=== PATIENT | female | born 1950 | race Caucasian/White ===

== ENCOUNTER 2023-07-31 05:02 | Observation (INO) ==
--- NOTE | 2023-06-26 09:17 | PAT Medication Instructions ---
Medication Instructions Date of Service June 26, 2023 Home Medications apixaban 5 mg tablet (Eliquis) 5 mg PO BID calcium 500 mg tablet 500 mg PO QDL cholecalciferol (vitamin D3) 50 mcg (2,000 unit) tablet (Vitamin D3) 50 mcg PO QAM d-mannose 500 mg capsule (AZO D-Mannose) 500 mg PO QDL estradiol 0.01% (0.1 mg/gram) vaginal cream 1 g vaginal 3XWK ferrous sulfate 325 mg (65 mg iron) tablet 325 mg PO QAM lisinopril 10 mg-hydrochlorothiazide 12.5 mg tablet 1 tab PO QAM metoprolol tartrate 50 mg tablet 50 mg PO BID multivitamin 1 tab PO QDL ASK your prescriber and surgeon apixaban 5 mg tablet (Eliquis) 5 mg PO BID(in order for spinal or epidural anesthesia, Eliquis needs to be stopped 72 hours/3 days before surgery. Please check if okay with doctor that prescribes this to you) STOP taking 24 hours before surgery estradiol 0.01% (0.1 mg/gram) vaginal cream 1 g vaginal 3XWK DO NOT take the morning of surgery calcium 500 mg tablet 500 mg PO QDL cholecalciferol (vitamin D3) 50 mcg (2,000 unit) tablet (Vitamin D3) 50 mcg PO QAM d-mannose 500 mg capsule (AZO D-Mannose) 500 mg PO QDL ferrous sulfate 325 mg (65 mg iron) tablet 325 mg PO QAM lisinopril 10 mg-hydrochlorothiazide 12.5 mg tablet 1 tab PO QAM multivitamin 1 tab PO QDL Take morning of surgery With a small sip of water, OTHERWISE NOTHING TO EAT OR DRINK AFTER MIDNIGHT: metoprolol tartrate 50 mg tablet 50 mg PO BID Take evening before surgery metoprolol tartrate 50 mg tablet 50 mg PO BID Other Notes If you have any questions please call us at [phone] or [phone] or [phone] or [phone]
--- NOTE | 2023-07-02 11:12 | Anesthesiology Consultation ---
Date of Service July 02, 2023 Assessment & Plan (1) Encounter for pre-operative examination: Chart Review Chart Review: Acceptable Risk for Surgery (pending 06/2022 stress test if available, PCP clearance scheduled 07/08/23, and response from patient regarding Eliquis ) and Patient seen in Pre Admission Testing - Awaiting stress test (07/05/22 per cardio records- [facility]) - Awaiting PCP clearance 07/08/23 (Dr. Landry Miner) - Awaiting response from patient regarding Eliquis - Patient is NOT an OPJ candidate- had hypotension post op with previous surgery and patient feels she needs to stay overnight for monitoring Per PAT appt on 07/02/23, no recent illness/disease exposures, illness related symptoms, or recent illness/disease positive tests. Will leave to surgeon's discretion if preop Covid testing needed Patient seen by cardio 06/06/23= seen for follow up on atrial fibrillation. Atrial fibrillation with controlled ventricular response by EKG in office today. Remains asymptomatic. Hospitalized in December 2022 for fallhad syncopal episode. EKG on presentation showed normal sinus rhythm and then patient was back in A-fib by the next day. Wondering if syncope was conversion pause (A-fib to SR). Has not had any recurrent episodes since then. Because she is asymptomaticreasonable to continue with rate control and anticoagulation strategy for now. If patient becomes more symptomatic or rates are difficult to controlcould consider starting antiarrhythmic followed by cardioversion. If she has recurrent syncopal episodes may need to perform jail monitoring to determine if pacemaker is indicated. She is planning for knee replacement in July. Eliquis can be held for 48 hours prior to operation and resume RAJWINDER once adequate hemostasis is achieved. Follow-up in 6 months. (Patient will check with sap abap developer if she can hold Eliquis x 72 hours in order to get SAB) Teaching & Discussion Pre-Anesthesia Teaching/Discussion Notes: Instructed NPO after midnight before surgery,except medications with 15 cc of water. Medication instructions provided according to the PAT guidelines. History Surgery Operation Date: 07/31/23 07:00 Proposed Procedures p Right Total Knee Arthroplasty - Db Odonnell DO Height/Weight Height: 5 ft 6 in Weight: 80.8 kg Allergies Allergy/AdvReac Type Severity Reaction Status Date / Time No Known Allergies Allergy Verified 06/25/23 12:15 Medications Home Medications Medication Instructions Recorded Confirmed Last Taken apixaban 5 mg tablet (Eliquis) 5 mg PO BID 06/25/23 06/25/23 Unknown calcium 500 mg tablet 500 mg PO QDL 06/25/23 06/25/23 Unknown cholecalciferol (vitamin D3) 50 50 mcg PO QAM 06/25/23 06/25/23 Unknown mcg (2,000 unit) tablet (Vitamin D3) d-mannose 500 mg capsule (AZO 500 mg PO QDL 06/25/23 06/25/23 Unknown D-Mannose) estradiol 0.01% (0.1 mg/gram) 1 g vaginal 3XWK 06/25/23 06/25/23 Unknown vaginal cream ferrous sulfate 325 mg (65 mg 325 mg PO QAM 06/25/23 06/25/23 Unknown iron) tablet lisinopril 10 1 tab PO QAM 06/25/23 06/25/23 Unknown mg-hydrochlorothiazide 12.5 mg tablet metoprolol tartrate 50 mg tablet 50 mg PO BID 06/25/23 06/25/23 Unknown multivitamin 1 tab PO QDL 06/25/23 06/25/23 Unknown Past Medical History Medical History (Updated 07/02/23 @ 14:47 by Symone Dumont PA-C) Atrial fibrillation Follows with Dr. Patel. On Eliquis. Frequent UTI No current symptoms History of COVID-19 End of Apr 2023. Sneezing and runny nose. Mild cough- symptoms resolved History of syncope - 12/2022 - hospitalized [facility]. "possibly related to A.fib." - per cardio records- possible conversion pause (a fib to SR)- no recurrence since that time HTN (hypertension) Hyperglycemia Hgb A1C 6.0 on 07/02/23 Hyperlipemia Iron deficiency anemia Osteoarthritis PONV (postoperative nausea and vomiting) Spinal stenosis Thyroid nodule PCP monitors. Urinary retention with incomplete bladder emptying straight caths at home BID. Exercise / Class Metabolic Activity III < 4 Walking/Shop/Light housework (no chest pain or SOB with flat surface ambulation ) Past Surgical History Surgical History History of appendectomy History of cholecystectomy History of colonoscopy History of corneal transplant x2 History of cystoscopy History of left knee replacement History of tubal ligation Past Anesthesia History No Hx of Anesthesia Complications (with exception to PONV ) and No Family Hx of Anesthesia Complications History of PONV No Hx of Motion Sickness and History of PONV Social History Smoking Status: Never smoker Do You Dip or Chew Tobacco: No Hx Alcohol Use: Yes alcohol intake frequency: holidays/special occasions only Hx Substance Use: No substance use type: does not use Review of Systems - Occ reflux - relieved with Tums PRN Patient denies chest pain, shortness of breath, dyspnea on exertion, cough, wheezing, palpitations. No hx of seizures, stroke, NC, apnea/snoring. No hx of blood clots or blood transfusions Physical Exam Vital Signs VITALS BP 117/60 P 98 TEMP 98.2 SP02 96% RESP 16 Constitutional no acute distress ENMT Mouth: no TMJ clicking Thyromental Distance: > or= 3.5 Finger Breadths (3.5) Mallampati Class: II Full dentures on top and bottom Neck neck extension not limited Respiratory normal respiratory effort; no respiratory distress Auscultation: lungs clear to auscultation bilaterally; no wheezes Cardiovascular Heart Sounds: no murmur Vessels: no carotid bruit Irregularly irregular rhythm - rate controlled Musculoskeletal Spine: no pain with cervical ROM Extremities: extremities normal to inspection Psychiatric Orientation: alert Lab Results Anesthesia Preop Results Results Anesthesia Widget: WBC 5.92 K/ul (4.8-10.8) 07/02/23 Hgb 12.6 g/dl (12.0-16.0) 07/02/23 Hct 39.3 % (37.0-47.0) 07/02/23 Plt 218 K/uL (130-400) 07/02/23 Na 141 mmol/L (136-145) 07/02/23 K 3.8 mmol/L (3.5-5.1) 07/02/23 Cl 107 mmol/L (98-107) 07/02/23 CO2 28 mmol/L (21-32) 07/02/23 BUN 23 mg/dl (6-23) 07/02/23 Creat 0.94 mg/dl (0.6-1.2) 07/02/23 Glucose Level 135 mg/dl (70-99(Fasting)) H 07/02/23 PT 11.0 Seconds (9.0-12.0) 07/02/23 PTT 28 Seconds (21-31) 07/02/23 INR 1.0 (0.9-1.1) 07/02/23 HA1c 6.0 % (4.5-5.6) H 07/02/23 Blood Type A Positive 07/02/23 Antibody Screen NEGATIVE 07/02/23 Testing Electrocardiogram Date: 06/06/23 Findings: + AFIB @ (88bpm) Chest X-Ray Date: 01/13/23 Findings: + NAD and + cardiomegaly (mild) Echocardiogram Date: 01/14/23 EF: 50-55% RWMA: + none Other Findings: no LVH LV systolic function lower limits of normal. RV cavity is severely dilated. RVSP 37mmHg. Mild TR Inferior vena cava- dilated.
--- NOTE | 2023-07-05 12:47 | History & Physical Report ---
Date of Service July 05, 2023 date of surgery: 07/31/23 Procedure: Right Total Knee Arthroplasty Surgeon: Db Odonnell, Assessment & Plan (1) Arthritis of right knee: Plan: Further care discussed with patient and at this point in time has failed conse rvative measures and would like to proceed with a right total knee replacement. Plan on discharge will be home with home health physical therapy. DVT prophylaxiswith TEDs, SCDs and will resume her Eliquis postop. Patient will have follow up appointment in our office two weeks post op for staple/suture removal and re-evaluation. Patient otherwise has no other questions or concerns. The risks and benefits have been discussed including, but not limited to, risk of infection, nerve injury, stiffness, loss of motion, failure to improve, etc. Reasonable outcomes and options of treatment were discussed. An explanation of appropriate alternatives to the procedure that may be advantageous were discussed and their risks and benefits, as well as the risks and benefits of not proceeding with treatment. I offered to answer any additional inquiries concerning the treatment involved. All the patient's questions were answered. The patient is agreeable, understanding of the treatment plan and alternatives, and wishes to proceed with the treatment plan. History of Present Illness Chief Complaint: Right knee pain Primary Care Provider: NO PCP Gloria is a pleasant 72-year-old female who presented for preop evaluation prior to upcoming right total knee arthroplasty. She has a longstanding history of right knee pain which is gradually worsened and is now affecting her daily activities including walking standing using stairs. She has tried physical therapy as well as previous injections with no improvement. She is tried oral anti-inflammatories and Tylenol as well. She has a history of left total knee arthroplasty which is recovered nicely. She at this time would like to proceed with a right total knee replacement. Currently unable to take anti- inflammatories due to Eliquis use Allergies Allergy/AdvReac Type Severity Reaction Status Date / Time No Known Allergies Allergy Verified 06/25/23 12:15 Home Medications Medication Instructions Recorded Confirmed Type apixaban 5 mg tablet (Eliquis) 5 mg PO BID 06/25/23 06/25/23 History calcium 500 mg tablet 500 mg PO QDL 06/25/23 06/25/23 History cholecalciferol (vitamin D3) 50 50 mcg PO QAM 06/25/23 06/25/23 History mcg (2,000 unit) tablet (Vitamin D3) d-mannose 500 mg capsule (AZO 500 mg PO QDL 06/25/23 06/25/23 History D-Mannose) estradiol 0.01% (0.1 mg/gram) 1 g vaginal 3XWK 06/25/23 06/25/23 History vaginal cream ferrous sulfate 325 mg (65 mg 325 mg PO QAM 06/25/23 06/25/23 History iron) tablet lisinopril 10 1 tab PO QAM 06/25/23 06/25/23 History mg-hydrochlorothiazide 12.5 mg tablet metoprolol tartrate 50 mg tablet 50 mg PO BID 06/25/23 06/25/23 History multivitamin 1 tab PO QDL 06/25/23 06/25/23 History Past Med/Surg History Medical History Hyperglycemia Hgb A1C 6.0 on 07/02/23 History of COVID-19 of Apr 2023. Sneezing and runny nose. Mild cough- symptoms resolved Hyperlipemia History of syncope - 12/2022 - hospitalized [facility]. "possibly related to A.fib." - per cardio records- possible conversion pause (a fib to SR)- no recurrence since that time PONV (postoperative nausea and vomiting) Spinal stenosis Urinary retention with incomplete bladder emptying straight caths at home BID. Frequent UTI No current symptoms Osteoarthritis Thyroid nodule PCP monitors. Iron deficiency anemia HTN (hypertension) Atrial fibrillation Follows with Dr. Patel. On [facility]. Surgical History History of left knee replacement History of corneal transplant x2 History of tubal ligation History of cholecystectomy History of appendectomy History of cystoscopy History of colonoscopy Social History Smoking Status: Never smoker Second Hand Exposure: No; Do You Dip or Chew Tobacco: No; Hx Alcohol Use: Yes Hx Substance Use: No Preferred Language: Setswana Communication Ability: Effective Paper Cone Grader Required: No Beliefs That Will Affect Care: None Current Living Situation: Spouse Feels Safe at Home: Yes Safety Concerns: Feels Safe At This Time Assistive Devices: Denture - Upper and Denture - Lower Review of Systems Review of Systems: All systems reviewed & are unremarkable except as noted in HPI & below Constitutional: no fever, no chills and no sweats Respiratory: no cough and no dyspnea Cardiovascular: no chest pain, no dyspnea and no orthopnea Gastrointestinal: no abdominal pain, no nausea and no vomiting Musculoskeletal: as per Subjective / HPI Physical Exam Physical Exam: HT: 5ft 6in WT: 80.8kg Constitutional: WD/WN, vitals as above no acute distress Respiratory: normal respiratory effort, lungs clear to auscultation no respiratory distress, no labored breathing and does not use accessory muscles Cardiovascular: RRR, no murmur, no edema Gastrointestinal (Abdomen): normal bowel sounds, soft, nontender, no hepatosplenomegaly Musculoskeletal: Knee: + knee abnormal to inspection (RIGHT KNEE), + effusion (+1 effusion), + limited ROM of knee (ROM 0/3/110), + knee ROM with crepitation, + joint line tenderness (medial joint line) and + Krish's sign positive; no deformity, no skin erythema, no ecchymosis, no valgus laxity, no varus laxity, anterior drawer test negative, Cy's sign negative and pivot shift test negative Results & Data Results & Data Diagnostic Findings Right Knee X-ray: Right knee series showing advanced degenerative changes to the right knee, narrowing of the medial compartment and patello-femoral joint with patellar spurring noted, findings showing joint space narrowing of the medial compartment and patello-femoral joint, osteophyte formation and subchondral sclerosis noted. overall varus alignment. no acute bony pathology noted.
[2023-07-31] MEDS: LR 60ML/HR IV SCH (06:00)
[2023-07-31] MEDS: ACETAMINOPHEN 500 MG TAB PO SCH ×2 (06:04→14:35)
[2023-07-31] MEDS: dexAMETHasone**PF** 10 MG/ML VIAL IV SCH (06:04)
[2023-07-31] MEDS: FAMOTIDINE 20 MG TAB PO SCH (06:05)
[2023-07-31] MEDS: GABAPENTIN 300 MG CAP PO SCH (06:05)
[2023-07-31] MEDS: CeleBREX 200 MG CAP PO SCH (06:05)
[2023-07-31] MEDS: LR 500ML BOLUS, THEN 15ML/HR IV SCH (06:05)
[2023-07-31] MEDS ORDERED: BUPIVACAINE 0.5 % 5 MG/1 ML PF 10ML VIAL ONE (06:27)
[2023-07-31] MEDS ORDERED: BUPIVACAINE 0.25% PF 30 ML VIAL ONE (06:27)
[2023-07-31] MEDS ORDERED: PROPOFOL IV EMULSION 10 MG/ML 20 ML VIAL IV ONE (06:40)
[2023-07-31] MEDS ORDERED: MIDAZOLAM HCL 1 MG/ML 2ML VIAL ONE (06:40)
[2023-07-31] MEDS ORDERED: fentaNYL citrate PF 100 MCG/2 ML VIAL ONE (06:40)
[2023-07-31] MEDS ORDERED: ATROPINE SULFATE 0.1 MG/ML 10ML SYR IV PRN (06:52)
[2023-07-31] MEDS ORDERED: PROMETHAZINE HCL 6.25 MG in SODIUM CHLORIDE 0.9% 50 ML IV PRN (06:52)
[2023-07-31] MEDS ORDERED: ONDANSETRON INJ 2 MG/ML 2 ML VIAL IV PRN ×2 (06:52→11:29)
[2023-07-31] MEDS ORDERED: ePHEDrine sulfate 50 MG/ML AMP IV PRN (06:52)
[2023-07-31] MEDS ORDERED: ACETAMINOPHEN 1000 MG/100 ML IV IV ONE (06:59)
--- NOTE | 2023-07-31 07:06 | History & Physical Bridge Note ---
Date of Service July 31, 2023 History & Physical Bridge Note I have examined the patient, reviewed the History & Physical and in the interval since the performance of the History & Physical I have noted the following changes of clinical significance: no changes noted
[2023-07-31] MEDS: ceFAZolin 2000MG 2,000 MG/15 ML SYR IV SCH ×2 (07:18→14:33)
[2023-07-31] MEDS ORDERED: ONDANSETRON INJ 2 MG/ML 2 ML VIAL ONE (07:50)
[2023-07-31] MEDS: ORTHO JOINT ANESTHETIC ONE (08:28)
[2023-07-31] MEDS: ROPIV 0.5% 246mg, Ketorolac 30mg, EPINEPHrine 0.5mg in NSS INFIL SCH (08:28)
--- NOTE | 2023-07-31 08:34 | Operative Report ---
Post Operative Report Pre & Post Diagnosis Operation Date: 07/31/23 07:00 Pre-Op Diagnosis: Right Knee Osteoarthritis Post-Op Diagnosis: Right Knee Osteoarthritis I identified the patient and participated in the time-out.: Yes Procedure Operation Date: 07/31/23 07:00 Actual Procedures p Right Total Knee Arthroplasty(Right) utilizing [employer]ph[employer] journey 2 patient matched total knee arthroplasty size femur 4 tibia 4 poly 13 patella 29 joo- Db Odonnell DO Surgeon Db Odonnell DO Gear Changer SULEMA Orozco Estimated Blood Loss 5 Findings Consistent with Post-Op Diagnosis Patient presents with severe end-stage tricompartmental degenerative joint disease varus alignment subchondral sclerosis marginal osteophytes subchondral cystic changes with eburnated [id number] and moderate to large effusion Specimens Bone and cartilage Drains Medium bore Hemovac Anesthesia Type MAC Spinal Regional Complications none Disposition Accompanied Patient To Recovery: No Disposition: Recovery Room Indications Patient presents with severe end-stage tricompartmental degenerative joint disease of the right knee nonresponse to conservative management for total knee arthroplasty patient is failed attempted conservative management occluding physical therapy anti-inflammatories relative rest activity modification corticosteroid injection viscosupplementation above intraoperative findings were noted Description of Procedure After proper prepping and draping of the Right lower extremity anterior midline incision was made over the region of the extensor extensor mechanism after meticulous hemostasis was obtained and maintained in subcutaneous tissues a medial parapatellar incision was made The patella was subluxed lateralward the medial lateral gutter were cleaned from any hypertrophic synovitis and scar tissue of the distal femoral block was placed and the distal femoral osteotomy cut was made subsequently the chamfers anterior and posterior osteotomy cuts were made utilizing the 4-in-1 block the tibia was subsequently subluxed anteriorward medial and ateral meniscal remnants were excised in their entirety remnants of the anterior and posterior cruciate ligaments were excised in their entirety excellent exposure of the proximal tibia was obtained the tibial osteotomy guide was placed on the proximal tibial osteotomy cut was made once again the knee was irrigated with copious amounts of sterile saline solution the patella was subsequently everted lateralward thickened scar tissue around the patella was removed the patella was subsequently cut utilizing a freehand technique and was drilled prepared for final preparation and placement of patella socially flexion-extension gaps were checked and the equal and symmetric trials were placed to the appropriate femoral and tibial trials with poly-spacer being placed for equal flexion and extension gaps and full range of motion including extension to 0 and flexion to 140 the trial components after having been taken to recovery range of motion was subsequently removed meticulous hemostasis was obtained and maintained subsequently a knee block injection of joint cocktail including ropivacaine 0.5% 150 mg. Bupivacaine 0.5% epinephrine 1-200,030 mL's toradol 30 mg dexamethasone 4 mg ketamine 10 mg clonidine 100 mi crograms normal saline solution 30 mg was infiltrated into the soft tissues of the posterior knee medial lateral gutters and periosteal synovium special attention was paid to protect neurovascular structures at all times subsequently trial components having been removed the knee was irrigated with sterile saline solution. debris was removed the proximal tibia was subsequently prepared and was made ready for the placement of the tibial component tibial component was also cemented and tamped into position the femoral component was subsequently placed and cemented in the position the patellar component was subsequently cemented in position because hemostasis once again obtained and maintained wound having been thoroughly irrigated with debridement and debridement lavage was performed as well as a medial parapatellar incision closed with #1 Vicryl in interrupted fashion subcutaneous was closed with #2 Vicryl skin was closed with skin clips. PA-C was necessary for prepping and drapping as well as wound closure of deep fascia Sub cutaneous tissue and skin and was necessary for the case. A sterile compressive dressing was placed patient was taken to recovery in stable condition of report dictated by Blas I attest to the content of the Intraoperative Record and any orders documented therein. Any exceptions are noted below.Due to the complex nature of the procedure, the entire surgery was performed with the operational assistance of SULEMA Orozco. The bilingual administrative assistant, under direct supervision, was involved in the actual performance of all aspects of the surgical procedure including hemostasis, tissue retraction and incision, instrument management, patient positioning, and wound closure. I attest to the content of the Intraoperative Record and any orders documented therein. Any exceptions are noted below.
[2023-07-31] MEDS: fentaNYL citrate PF 100 MCG/2 ML VIAL IV PRN (09:22)
--- NOTE | 2023-07-31 10:23 | Electrocardiogram Report ---
Test Reason : Blood Pressure : / mmHG Vent. Rate : 100 BPM Atrial Rate : 094 BPM P-R Int : 000 ms QRS Dur : 098 ms QT Int : 384 ms P-R-T Axes : 000 -22 266 degrees QTc Int : 495 ms Atrial fibrillation Diffuse Nonspecific T wave abnormality Prolonged QT Abnormal ECG No previous ECGs available Confirmed by Kendrick Garcia ([id number]) on 07/31/2023 10:22:52 AM Referred By: Db Odonnell Confirmed By:Kendrick Garcia
--- NOTE | 2023-07-31 10:29 | XRay Report ---
XR knee RT 1 or 2V routine CLINICAL HISTORY: Surgical Post Op TECHNIQUE: 2 views of the right knee were obtained. Comparison: None available at the time of this dictation. FINDINGS: Patient is status post total knee arthroplasty with expected postsurgical changes including soft tiss ue swelling and subcutaneous emphysema. No periarticular lucency or hardware fracture is seen. IMPRESSION: Expected postoperative appearance status post placement of total knee arthroplasty. ACT 112: Negative or not required by law. Electronically signed by: Rhett Morales M.D. 07/31/2023 10:28 AM
[2023-07-31 10:44] LABS: BUN Creatinine Ratio 18.9 (10-20); Calcium 8.7 mg/dl (8.6-10.3); Creatinine Clr Calc Pharmacy 62.4 ml/min; Est GFR (African American) 75.1 ml/min; Est GFR (Non-African American) 64.8 ml/min; Magnesium 1.9 mg/dl (1.7-2.4); Potassium 3.4 mmol/L (3.5-5.1)
[2023-07-31 10:51] LABS: Troponin I High Sensitivity 4.5 pg/ml (0-14)
[2023-07-31 11:00] LABS: Thyroid Stimulating Hormone 2.747 uIu/ml (0.300-4.500)
[2023-07-31] MEDS ORDERED: diphenhydrAMINE Capsule 25 MG CAP PO PRN (11:29)
[2023-07-31] MEDS ORDERED: NALOXONE HCL 0.4 MG/1 ML VIAL/CARP IV PRN (11:29)
[2023-07-31] MEDS ORDERED: METOCLOPRAMIDE HCL INJ 5 MG/ML 2 ML VIAL IV PRN (11:29)
[2023-07-31] MEDS ORDERED: MAGNESIUM HYDROXIDE SUSP 30 ML UDC PO PRN (11:29)
[2023-07-31] MEDS ORDERED: bisacodyL 10 MG SUPP PR PRN (11:29)
[2023-07-31] MEDS ORDERED: ESTRADIOL PV SCH (11:29)
[2023-07-31] MEDS ORDERED: HYDROmorphone INJ 1 MG/ML SYRINGE IV PRN (11:29)
[2023-07-31] MEDS ORDERED: D MANNOSE 500 MG PO SCH (11:30)
[2023-07-31] MEDS: MAGNESIUM SULFATE / D5W 1 GM/100 ML BAG IV SCH (11:32)
--- NOTE | 2023-07-31 11:43 | History & Physical Report ---
Date of Service July 31, 2023 Assessment & Plan Admission and Anticipated Discharge Date Admission Date: July 31, 2023 History of Present Illness Chief Complaint: Post-op medical management, ECG pause during procedure Primary Care Provider: NO PCP Gloria is a 72 year old female with a PMH significant for Afib (on Eliquis), recurrent syncope, HTN, and OA who presented to the [facility] OR on 07/31/23 for elective Right Total Knee Arthroplasty with Dr. Odonnell. Per the operative report, EBL was listed as 5cc, anesthesia was listed as "[facility]", and there were no reported intraoperative complications. Anesthesia did reach out shortly after the operation to explain that the patient had a long pause on telemetry during the procedure which required pushes of atropine, she was otherwise stable. Unfortunately the OR team was unable to obtain a recording of the pause as they were focused on stabilizing the patient. We were asked to evaluate the patient post-op as the patient has a reported history of recurrent syncope in the past. Labs ordered prior to my exam were significant for a potassium of 3.4, mag of 1.9, with high sen trop and TSH WNL. Post-operative ECG shows her known afib with diffuse T-wave inversions but was otherwise without acute findings. At the time of the exam the patient was sitting in bed in no acute distress, all vitals are currently stable. She is feeling well post-operatively and is without complaints. She states that she had one episode of Syncope last December. She was seen by her Tableau Analyst in May for the syncopal episode. She states that her Tableau Analyst thought her syncopal episode was likely due to a pause when flipping in and out of afib. He was initially going to do a cardioversion but decided to hold off until after her knee replacement. She has otherwise been without recurrent episodes of syncope. When asked, she did have her am dose of metoprolol prior to Hospital arrival. She denies recent fever, chills, chest pain, cough, SOB, abd pain, nausea, vomiting, diarrhea, dysuria, hematuria, melena, LE swelling, and recent episodes of lightheaded/dizziness. Please refer to Dr. Pickens' attestation for any changes to the treatment plan Allergies Allergy/AdvReac Type Severity Reaction Status Date / Time No Known Allergies Allergy Verified 07/31/23 05:45 Home Medications Medication Instructions Recorded Confirmed Type apixaban 5 mg tablet (Eliquis) 5 mg PO BID 06/25/23 07/31/23 History calcium 500 mg tablet 500 mg PO QDL 06/25/23 07/31/23 History cholecalciferol (vitamin D3) 50 50 mcg PO QAM 06/25/23 07/31/23 History mcg (2,000 unit) tablet (Vitamin D3) d-mannose 500 mg capsule (AZO 500 mg PO QDL 06/25/23 07/31/23 History D-Mannose) estradiol 0.01% (0.1 mg/gram) 1 g vaginal 3XWK 06/25/23 07/31/23 History vaginal cream (Estrace) ferrous sulfate 325 mg (65 mg 325 mg PO QAM 06/25/23 07/31/23 History iron) tablet lisinopril 10 1 tab PO QAM 06/25/23 07/31/23 History mg-hydrochlorothiazide 12.5 mg tablet (Zestoretic) metoprolol tartrate 50 mg tablet 50 mg PO BID 06/25/23 07/31/23 History multivitamin 1 tab PO QDL 06/25/23 07/31/23 History Past Med/Surg History Medical History Hyperglycemia Hgb A1C 6.0 on 07/02/23 History of COVID-19 End of Apr 2023. Sneezing and runny nose. Mild cough- symptoms resolved Hyperlipemia History of syncope - 12/2022 - hospitalized [facility]. "possibly related to A.fib." - per cardio records- possible conversion pause (a fib to SR)- no recurrence since that time PONV (postoperative nausea and vomiting) Spinal stenosis Urinary retention with incomplete bladder emptying straight caths at home BID. Frequent UTI No current symptoms Osteoarthritis Thyroid nodule PCP monitors. Iron deficiency anemia HTN (hypertension) Atrial fibrillation Follows with Dr. Patel. On Eliquis. Surgical History History of left knee replacement History of corneal transplant x2 History of tubal ligation History of cholecystectomy History of appendectomy History of cystoscopy History of colonoscopy Social History Smoking Status: Never smoker Second Hand Exposure: No; Do You Dip or Chew Tobacco: No; Hx Alcohol Use: Yes Hx Substance Use: No Preferred Language: Italian Communication Ability: Effective Aircraft Seat Upholsterer Required: No Beliefs That Will Affect Care: None Current Living Situation: Spouse Feels Safe at Home: Yes Safety Concerns: Feels Safe At This Time Assistive Devices: Denture - Upper and Denture - Lower Physical Exam Physical Exam: Physical Exam: General: In no acute distress, stated age, well-nourished, good hygiene HEENT: Normocephalic, atraumatic, no scleral icterus, pupils around round, symmetrical, and reactive to light, moist mucus membranes, trachea midline, no thyromegaly Chest/Pulm: No respiratory distress, symmetrical chest expansion, clear breath sounds throughout Cardiac: irregular rate and rhythm, no murmurs noted Abdomen: Negative for ascites and bruising, normoactive bowel sounds, soft, non-tender to palpation throughout Musculoskeletal: RLE is currently wrapped and without signs of drainage, intact sensation and monitor function in the BL feet Extremities: Radial, dorsalis pedis, and posterior tibial pulses are intact and symmetrical, no edema noted in the BL LE's Skin: Warm, dry, no rashes , lesions, or scars noted Neuro: Alert and oriented to person, place, month, year, and president, no focal defects, no tremors noted Psych: No acute distress, calm and cooperative during the exam Results & Data Results & Data Vital Signs (Past 12 Hours) Vital Signs Temp Pulse Pulse Resp BP Pulse Ox O2 Del Method 07/31/23 10:30 87 15 122/77 98 Nasal Cannula 07/31/23 10:00 89 24 120/80 97 Nasal Cannula 07/31/23 09:50 98 H 14 133/86 97 Nasal Cannula 07/31/23 09:40 36.4 C L 103 H 15 115/85 97 Oxymask 07/31/23 09:30 103 H 18 135/85 98 Oxymask 07/31/23 09:20 113 H 18 129/84 98 Oxymask 07/31/23 09:10 116 H 20 103/85 98 Oxymask 07/31/23 09:03 36.1 C L 108 H 22 131/93 98 Oxymask 07/31/23 05:47 36.5 C 96 H 18 134/92 98 Room Air O2 Flow Rate 07/31/23 10:30 2 07/31/23 10:00 2 07/31/23 09:50 2 07/31/23 09:40 2 07/31/23 09:30 5 07/31/23 09:20 5 07/31/23 09:10 5 07/31/23 09:03 9 07/31/23 05:47 Laboratory Results Abnormal lab results 07/31/23 Range/Units 10:18 Potassium 3.4 L (3.5-5.1) mmol/L Glucose 156 H (70-99(Fasting)) mg/dl Diagnostic Findings Knee X-Ray 07/31/23 09:01 XR knee RT 1 or 2V routine CLINICAL HISTORY: Surgical Post Op TECHNIQUE: 2 views of the right knee were obtained. Comparison: None available at the time of this dictation. FINDINGS: Patient is status post total knee arthroplasty with expected postsurgical changes including soft tissue swelling and subcutaneous emphysema. No periarticular lucency or hardware fracture is seen. IMPRESSION: Expected postoperative appearance status post placement of total knee arthroplasty. ACT 112: Negative or not required by law. Electronically signed by: Rhett Morales M.D. 07/31/2023 10:28 AM ECG Additional Comments: Atrial fibrillation Diffuse Nonspecific T wave abnormality Prolonged QT Abnormal ECG No previous ECGs available Confirmed by Kendrick Garcia ([id number]) on 07/31/2023 10:22:52 AM Code Status & VTE Plan VTE Prophylaxis Plan VTE Prophylaxis will be ordered: Yes PG Care Time/CCT Total # of Minutes Spent Total Time Spent with Patient: Total time spent is greater than 50% in coordination of care (as documented) at patient's floor/unit and/or counseling patient: Coding
[2023-07-31] MEDS: SODIUM CHLORIDE 0.9% 1,000 ML IV SCH (11:54)
[2023-07-31] MEDS: POTASSIUM CHLORIDE / WTR 10 MEQ/100 ML PLCT IV SCH (11:54)
[2023-07-31] MEDS: LISINOPRIL/HCTZ 10/12.5MG TAB PO SCH (12:03)
[2023-07-31] MEDS: DOCUSATE SODIUM 100 MG CAP PO SCH (12:03)
[2023-07-31] MEDS: CHOLECALCIFEROL 25 MCG (1000 UNITS) TAB PO SCH (12:03)
[2023-07-31] MEDS: MULTIVITAMIN TAB PO SCH (12:04)
[2023-07-31] MEDS: METOPROLOL TARTRATE 50 MG TAB PO SCH (12:04)
[2023-07-31] MEDS: FERROUS SULFATE 325 MG TAB PO SCH (12:04)
--- NOTE | 2023-07-31 12:20 | Hospitalist Consultation ---
Date of Consultation July 31, 2023 Assessment & Plan (1) Status post right knee replacement: -Patient is stable and non-toxic appearing -We were consulted for post-operative medical management and for a sinus pause which occurred during the operative -Pain control, DVT PPX, IV fluids, and perioperative abx per the primary team -Patient is doing well post-op and is without complaints -Agree with am CBC and BMP tomorrow, we will follow -Agree with resuming BID Eliquis tomorrow am if the patient is stable -Please reach out with any other questions or concerns -Medicine will continue to follow (2) Sinus pause: -Patient is currently stable and non-toxic appearing -We were alerted by the Anesthesia team that the patient had a significant sinus pause at the beginning of her procedure which required a dose of atropine, but she was otherwise stable -The patient was not captured on telemetry as they team was focused on stabilizing the patient during the procedure -Post-operative ECG shows afib with diffuse t-wave inversions but was without acute ST segment changes -Post-operative labs ordered by our team shows a potassium of 3.4, mag of 1.9, and TSH/high sen trop WNL -At this time the patient's episode of sinus pause during her operative was likely due to her flipping in and out of afib and NSR -This was likely exacerbated with her potassium of 3.4 -Patient did have her am dose of metoprolol -Patient is followed by [facility] cardiology outpatient and will be following up with them post operatively -We will give 40 meq PO KCL, 3 bags of 10 meq IV KCL, and 1gm IV mag sulfate now -Hold Lisinopril-HCTZ today, can resume tomorrow if BP and electrolytes are sta ble -Continue to monitor on tele for now -Monitor AM BMP and ECG (3) Atrial fibrillation: -Currently in rate controlled afib -Did have her am dose of Metoprolol -Can continue with home BID metoprolol as her HR is WNL -Agree with resuming Eliquis when the primary team is comfortable from a bleeding risk perspective (4) Hypokalemia: -See sinus pause (5) HTN (hypertension): -Stable -Can resume Linsinopril-HCTZ tomorrow if stable Plan The patient was discussed with Dr. Pickens at the time of the consult Supervising Physician Co-Signing Physician Notes I have personally seen, evaluated and examined the patient. I have also personally discussed the management of the patient with the resident physician/PEDRO and I agree with the exam findings documented in the history and physical examination and the documented assessment and plan unless otherwise stated below. Brief Exam: In general very pleasant 72-year-old female she is up to the bedside eating her lunch at the time my exam she is completely asymptomatic no chest pain or shortness of breath no palpitations. She does not have knee pain at this time as she has a nerve block. Her tentative plan is to go home and rehab. She does have help at home including her . On further history taking Dr. Patel did say he consider putting a pacemaker in the last time she passed out while she was on the commode she is with suspicion of sinus pause but did not pursue that. We did recommend she follow-up with Dr. Patel as an outpatient short-term to consider at home heart monitor/Holter monitor/[employer] monitor etc. In the meantime we will keep her on telemetry replace her electrolytes. Will cautiously proceed with maintaining the beta-blockade at her home dose. HEENT normocephalic/atraumatic. Heart: Irregular rate and rhythm consistent with A-fib rate controlled at this time. Lungs: Clear bilaterally. Abdomen: Soft nontender positive bowel sounds. Extremities: Right lower extremities postoperatively dressed with a Jl wrapping. Drain in place. Dressings intact clean and dry. Neurovascularly lower extremities are intact. Neurologically: Alert and oriented x 3 with no focal deficit. Assessment/plan: As described above. Please refer to orders for further plan History of Present Illness Reason for Consultation: Post-op medical management, ECG pause during procedure Requesting Physician: Db Odonnell DO Attending Physician: Dr. Demetrius Pickens History of Present Illness Gloria is a 72 year old female with a PMH significant for Afib (on Eliquis), recurrent syncope, HTN, and OA who presented to the [facility] OR on 07/31/23 for elective Right Total Knee Arthroplasty with Dr. Odonnell. Per the operative report, EBL was listed as 5cc, anesthesia was listed as "[facility]", and there were no reported intraoperative complications. Anesthesia did reach out shortly after the operation to explain that the patient had a long pause on telemetry during the procedure which required pushes of atropine, she was otherwise stable. Unfortunately the OR team was unable to obtain a recording of the pause as they were focused on stabilizing the patient. We were asked to evaluate the patient post-op as the patient has a reported history of recurrent syncope in the past. Labs ordered prior to my exam were significant for a potassium of 3.4, mag of 1.9, with high sen trop and TSH WNL. Post-operative ECG shows her known afib with diffuse T-wave inversions but was otherwise without acute findings. At the time of the exam the patient was sitting in bed in no acute distress, all vitals are currently stable. She is feeling well post- operatively and is without complaints. She states that she had one episode of Syncope last December. She was seen by her Tin Roofer in May for the syncopal episode. She states that her Tin Roofer thought her syncopal episode was likely due to a pause when flipping in and out of afib. He was initially going to do a cardioversion but decided to hold off until after her knee replacement. She has otherwise been without recurrent episodes of syncope. When asked, she did have her am dose of metoprolol prior to Hospital arrival. She denies recent fever, chills, chest pain, cough, SOB, abd pain, nausea, vomiting, diarrhea, dysuria, hematuria, melena, LE swelling, and recent episodes of lightheaded/dizziness. Please refer to Dr. Pickens' attestation for any changes to the treatment plan Allergies Allergy/AdvReac Type Severity Reaction Status Date / Time No Known Allergies Allergy Verified 07/31/23 05:45 Home Medications Medication Instructions Recorded Confirmed Type apixaban 5 mg tablet (Eliquis) 5 mg PO BID 06/25/23 07/31/23 History calcium 500 mg tablet 500 mg PO QDL 06/25/23 07/31/23 History cholecalciferol (vitamin D3) 50 50 mcg PO QAM 06/25/23 07/31/23 History mcg (2,000 unit) tablet (Vitamin D3) d-mannose 500 mg capsule (AZO 500 mg PO QDL 06/25/23 07/31/23 History D-Mannose) estradiol 0.01% (0.1 mg/gram) 1 g vaginal 3XWK 06/25/23 07/31/23 History vaginal cream (Estrace) ferrous sulfate 325 mg (65 mg 325 mg PO QAM 06/25/23 07/31/23 History iron) tablet lisinopril 10 1 tab PO QAM 06/25/23 07/31/23 History mg-hydrochlorothiazide 12.5 mg tablet (Zestoretic) metoprolol tartrate 50 mg tablet 50 mg PO BID 06/25/23 07/31/23 History multivitamin 1 tab PO QDL 06/25/23 07/31/23 History Patient History Medical History (Updated 07/31/23 @ 12:11 by Arnulfo Lauren PA-C) Hyperglycemia Hgb A1C 6.0 on 07/02/23 History of COVID-19 End of Apr 2023. Sneezing and runny nose. Mild cough- symptoms resolved Hyperlipemia History of syncope - 12/2022 - hospitalized [facility]. "possibly related to A.fib." - per cardio records- possible conversion pause (a fib to SR)- no recurrence since that time PONV (postoperative nausea and vomiting) Spinal stenosis Urinary retention with incomplete bladder emptying straight caths at home BID. Frequent UTI No current symptoms Osteoarthritis Thyroid nodule PCP monitors. Iron deficiency anemia HTN (hypertension) Atrial fibrillation Follows with Dr. Patel. On Eliquis. Surgical History (Updated 07/31/23 @ 12:11 by Arnulfo Lauren PA-C) History of left knee replacement History of corneal transplant x2 History of tubal ligation History of cholecystectomy History of appendectomy History of cystoscopy History of colonoscopy Social History Smoking Status: Never smoker Second Hand Exposure: No; Do You Dip or Chew Tobacco: No; Hx Alcohol Use: Yes Hx Substance Use: No Preferred Language: Botswanan Communication Ability: Effective Dry Wall Applicator Required: No Beliefs That Will Affect Care: None Current Living Situation: Spouse Feels Safe at Home: Yes Safety Concerns: Feels Safe At This Time Assistive Devices: Denture - Upper and Denture - Lower Physical Exam Physical Exam: Physical Exam: General: In no acute distress, stated age, well-nourished, good hygiene HEENT: Normocephalic, atraumatic, no scleral icterus, pupils around round, symmetrical, and reactive to light, moist mucus membranes, trachea midline, no thyromegaly Chest/Pulm: No respiratory distress, symmetrical chest expansion, clear breath sounds throughout Cardiac: irregular rate and rhythm, no murmurs noted Abdomen: Negative for ascites and bruising, normoactive bowel sounds, soft, non-tender to palpation throughout Musculoskeletal: RLE is currently wrapped and without signs of drainage, intact sensation and monitor function in the BL feet Extremities: Radial, dorsalis pedis, and posterior tibial pulses are intact and symmetrical, no edema noted in the BL LE's Skin: Warm, dry, no rashes , lesions, or scars noted Neuro: Alert and oriented to person, place, month, year, and president, no focal defects, no tremors noted Psych: No acute distress, calm and cooperative during the exam Results & Data Results & Data Vital Signs (Past 12 Hours) Vital Signs Temp Pulse Pulse Resp BP Pulse Ox O2 Del Method 07/31/23 10:30 87 15 122/77 98 Nasal Cannula 07/31/23 10:00 89 24 120/80 97 Nasal Cannula 07/31/23 09:50 98 H 14 133/86 97 Nasal Cannula 07/31/23 09:40 36.4 C L 103 H 15 115/85 97 Oxymask 07/31/23 09:30 103 H 18 135/85 98 Oxymask 07/31/23 09:20 113 H 18 129/84 98 Oxymask 07/31/23 09:10 116 H 20 103/85 98 Oxymask 07/31/23 09:03 36.1 C L 108 H 22 131/93 98 Oxymask 07/31/23 05:47 36.5 C 96 H 18 134/92 98 Room Air O2 Flow Rate 07/31/23 10:30 2 07/31/23 10:00 2 07/31/23 09:50 2 07/31/23 09:40 2 07/31/23 09:30 5 07/31/23 09:20 5 07/31/23 09:10 5 07/31/23 09:03 9 07/31/23 05:47 Laboratory Results Abnormal lab results 07/31/23 Range/Units 10:18 Potassium 3.4 L (3.5-5.1) mmol/L Glucose 156 H (70-99(Fasting)) mg/dl Diagnostic Findings Knee X-Ray 07/31/23 09:01 XR knee RT 1 or 2V routine CLINICAL HISTORY: Surgical Post Op TECHNIQUE: 2 views of the right knee were obtained. Comparison: None available at the time of this dictation. FINDINGS: Patient is status post total knee arthroplasty with expected postsurgical changes including soft tissue swelling and subcutaneous emphysema. No periarticular lucency or hardware fracture is seen. IMPRESSION: Expected postoperative appearance status post placement of total knee arthroplasty. ACT 112: Negative or not required by law. Electronically signed by: Rhett Morales M.D. 07/31/2023 10:28 AM ECG Additional Comments: Atrial fibrillation Diffuse Nonspecific T wave abnormality Prolonged QT Abnormal ECG No previous ECGs available Confirmed by Kendrick Garcia ([id number]) on 07/31/2023 10:22:52 AM PG Care Time/CCT Total # of Minutes Spent Total Time Spent with Patient: Total time spent is greater than 50% in coordination of care (as documented) at patient's floor/unit and/or counseling patient: [place] [address] IN/OBS CONSULT LVL 5,80M Patient Type New Medical Decision Making High Complexity Diagnoses Status post right knee replacement Z96.651 Sinus pause I45.5 Atrial fibrillation I48.91 Hypokalemia E87.6 HTN (hypertension) I10
[2023-07-31] MEDS: POTASSIUM CHLORIDE CRTAB 20 MEQ TABCR PO STA (12:53)
--- NOTE | 2023-07-31 13:41 | Anesthesiology Progress Note ---
Date of Service July 31, 2023 Anesthesia Post Procedure Vital Signs Vital Signs: Temp Pulse Pulse Resp BP Pulse Ox O2 Del Method 07/31/23 11:52 81 18 100/64 93 Room Air 07/31/23 11:00 36.2 C L 82 18 119/80 96 Room Air 07/31/23 10:30 87 15 122/77 98 Nasal Cannula 07/31/23 10:00 89 24 120/80 97 Nasal Cannula 07/31/23 09:50 98 H 14 133/86 97 Nasal Cannula 07/31/23 09:40 36.4 C L 103 H 15 115/85 97 Oxymask 07/31/23 09:30 103 H 18 135/85 98 Oxymask 07/31/23 09:20 113 H 18 129/84 98 Oxymask 07/31/23 09:10 116 H 20 103/85 98 Oxymask 07/31/23 09:03 36.1 C L 108 H 22 131/93 98 Oxymask 07/31/23 05:47 36.5 C 96 H 18 134/92 98 Room Air O2 Flow Rate 07/31/23 11:52 07/31/23 11:00 07/31/23 10:30 2 07/31/23 10:00 2 07/31/23 09:50 2 07/31/23 09:40 2 07/31/23 09:30 5 07/31/23 09:20 5 07/31/23 09:10 5 07/31/23 09:03 9 07/31/23 05:47 Pain Intensity Right Knee: Pain Intensity: 5 Transfer of Care Handoff Completed per policy Notes Mental Status: alert / awake / arousable and participated in evaluation Patient Amnestic to Procedure: Yes Nausea / Vomiting: adequately controlled Pain: adequately controlled Airway Patency, RR, SpO2: stable & adequate BP & HR: see Notes below Hydration State: stable & adequate Anesthetic Complications: see Notes below and Pt Satisfied with anesthetic care Notes: Patient with known history of A fib with syncope in December 2022. Cardiology had stated in a preop clearance note that if she experienced syncope again they might consider Holter monitor to determine further treatment. During surgery, patient had a several second pause in electrical activity noted on monitor that was treated immediately with ephedrine and atropine with HR's increasing into low 100's. BP was stable. No further recurrence during surgery and she awoke without complaints of chest pain/pressure. Pain was well controlled. Spoke with surgery team and requested patient be monitored on telemetry overnight. Also a sked that they consult hospitalist service as patient will likely need f/u with cardiology (she sees [facility]) however will defer to their rec's. Patient left PACU in stable condition.
[2023-07-31] MEDS: oxyCODONE HCL IR 5 MG TAB (IMMEDIATE RELEASE) PO PRN (14:32)
[2023-07-31] MEDS: SENNA 8.6 MG TAB PO SCH (21:54)
[2023-07-31] MEDS: SODIUM CHLORIDE 0.9% 500 ML IV ONE (21:55)
[2023-07-31] MEDS: DIGOXIN 250 MCG in SYRINGE 9 ML IV STA (21:55)
--- NOTE | 2023-07-31 22:57 | Communication Note ---
Blood pressure 90s/50s with HRs in the 120s when due for evening dose of metoprolol. Telemetry reviewed, showed afib with rates in the 110s/120s. Plan to give 500mL fluid bolus, continue maintenance fluids. Hold metoprolol tonight and instead will give dose of digoxin. Pt was elevated at bedside and without any acute complaints. Denies chest pain, dyspnea. Knee pain well controlled. Heart with RRR and lungs clear to auscultation B/L. Date of Service: July 31, 2023
[2023-08-01 05:04] LABS: Hemoglobin 8.7 g/dl (12.0-16.0); Mean Corpuscular Hemoglobin 29.2 pg (25.0-34.0); Mean Corpuscular Hgb Conc 32.2 g/dL (32.0-36.0); Mean Corpuscular Volume 90.6 fL (80.0-100.0); Mean Platelet Volume 11.3 fL (9.4-12.4); Platelet Count 153 K/uL (130-400); RDW Coefficient of Variation 14.7 % (11.5-14.5); RDW Standard Deviation 48.7 fL (36.4-46.3); Red Blood Count 2.98 M/uL (4.20-5.40); White Blood Count 15.59 K/ul (4.8-10.8)
[2023-08-01 05:15] LABS: BUN Creatinine Ratio 20.8 (10-20); Calcium 8.1 mg/dl (8.6-10.3); Creatinine Clr Calc Pharmacy 55.6 ml/min; Est GFR (African American) 65.3 ml/min; Est GFR (Non-African American) 56.4 ml/min; Potassium 4.5 mmol/L (3.5-5.1)
--- NOTE | 2023-08-01 07:00 | Orthopedic Progress Note ---
Date of Service August 01, 2023 Assessment & Plan (1) Status post right knee replacement: Plan: POD #1 s/p Right TKA pt/ot dvt proph with JESSIE/SCD/resume her Eliquis this am plan for d/c home with HHPT when stable. will await medical team recommendations. 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 acute blood loss anemia- H/H 8.7/27 this am, currently asymptomatic. Admission and Anticipated Discharge Date Admission Date: July 31, 2023 Subjective POD #1 s/p Right TKA Review of Systems Constitutional: no fever, no chills and no sweats Respiratory: no cough and no dyspnea Cardiovascular: no chest pain and no dyspnea Gastrointestinal: no abdominal pain, no nausea and no vomiting Physical Exam Physical Exam: Vital Signs Temp 36.7 C 08/01/23 03:51 Pulse 108 H 08/01/23 03:51 Resp 20 08/01/23 03:51 BP 106/71 08/01/23 03:51 Pulse Ox 94 08/01/23 03:51 O2 Del Method Room Air 08/01/23 03:51 O2 Flow Rate 2 07/31/23 10:30 Intake & Output 07/31/23 07/31/23 08/01/23 06:59 18:59 06:59 Intake Total 1488.333 / 3855.00 0 2366.667 / 3855.00 0 Output Total 85 / 285 200 / 285 Balance 1403.333 / 3570.00 0 2166.667 / 3570.00 0 Weight 80.9 kg Intake: IV 388.333 / 2635.000 2246.667 / 2635.00 0 Lactated Ringe r's 1,000 ml @ 60 0 / 0 mls/hr IV .Q16 H40M BARRETT Rx#: [id number] Magnesium Sulf ate / D5w 1 gm In 100 / 100 100 ml @ 50 ml s/hr IV Q2H BARRETT Rx#:[id number] Potassium Chlo ride / Wtr 10 meq 288.333 / 288.333 In 100 ml @ 10 0 mls/hr IV Q1H BARRETT Rx#:[id number] Sodium Chlorid e 0.9% 1,000 ml @ 2246.667 / 2246.66 7 100 mls/hr IV .Q10H BARRETT Rx#: [id number] IV Perioperative 1100 / 1100 Oral 120 / 120 Output: Estimated Blood Loss 5 / 5 Drain Output 80 / 280 200 / 280 Right Knee 80 / 280 200 / 280 Other: # Unmeasured Voi ds 3 Weight Measureme nt Method Standing Scale Musculoskeletal: Right Leg: NVDI, calf SNT, negative isabel sign. DP palpable, able to wiggle toes/ankle movement without difficulty. dressing clean dry and intact. Results & Data Vital Signs (Past 12 Hours) Vital Signs Temp Pulse Pulse Resp BP Pulse Ox O2 Del Method 08/01/23 03:51 36.7 C 108 H 20 106/71 94 Room Air 07/31/23 23:28 36.7 C 95 H 20 91/58 L 95 Room Air 07/31/23 22:00 111 H 07/31/23 21:55 113 H 07/31/23 20:36 97/66 L 07/31/23 20:19 36.7 C 94 H 20 92/57 L 92 Room Air Laboratory Results Laboratory Results WBC 15.59 K/ul (4.8-10.8) H 08/01/23 04:09 RBC 2.98 M/uL (4.20-5.40) L 08/01/23 04:09 Hgb 8.7 g/dl (12.0-16.0) L 08/01/23 04:09 Hct 27.0 % (37.0-47.0) L 08/01/23 04:09 MCV 90.6 fL (80.0-100.0) 08/01/23 04:09 MCH 29.2 pg (25.0-34.0) 08/01/23 04:09 MCHC 32.2 g/dL (32.0-36.0) 08/01/23 04:09 RDW Std Deviation 48.7 fL (36.4-46.3) H 08/01/23 04:09 RDW Coeff of Desmond 14.7 % (11.5-14.5) H 08/01/23 04:09 Plt Count 153 K/uL (130-400) 08/01/23 04:09 MPV 11.3 fL (9.4-12.4) 08/01/23 04:09 Sodium 139 mmol/L (136-145) 08/01/23 04:09 Potassium 4.5 mmol/L (3.5-5.1) D 08/01/23 04:09 Chloride 109 mmol/L (98-107) H 08/01/23 04:09 Carbon Dioxide 25 mmol/L (21-32) 08/01/23 04:09 Anion Gap 5 (3-11) 08/01/23 04:09 BUN 21 mg/dl (6-23) 08/01/23 04:09 Creatinine 1.01 mg/dl (0.6-1.2) 08/01/23 04:09 Est Cr Clr Drug Dosing 55.6 ml/min 08/01/23 04:09 Est GFR ( Amer) 65.3 ml/min 08/01/23 04:09 Est GFR (Non-Af Amer) 56.4 ml/min 08/01/23 04:09 BUN/Creatinine Ratio 20.8 (10-20) H 08/01/23 04:09 Glucose 146 mg/dl (70-99(Fasting)) H 08/01/23 04:09 Calcium 8.1 mg/dl (8.6-10.3) L 08/01/23 04:09 Magnesium 1.9 mg/dl (1.7-2.4) 07/31/23 10:18 Troponin I High Sens 4.5 pg/ml (0-14) 07/31/23 10:18 TSH 2.747 uIu/ml (0.300-4.500) 07/31/23 10:18 Impressions Knee X-Ray 07/31/23 09:01 XR knee RT 1 or 2V routine CLINICAL HISTORY: Surgical Post Op TECHNIQUE: 2 views of the right knee were obtained. Comparison: None available at the time of this dictation. FINDINGS: Patient is status post total knee arthroplasty with expected postsurgical changes including soft tissue swelling and subcutaneous emphysema. No periarticular lucency or hardware fracture is seen. IMPRESSION: Expected postoperative appearance status post placement of total knee arthroplasty. ACT 112: Negative or not required by law. Electronically signed by: Rhett Morales M.D. 07/31/2023 10:28 AM
--- NOTE | 2023-08-01 08:07 | Electrocardiogram Report ---
Test Reason : Blood Pressure : / mmHG Vent. Rate : 096 BPM Atrial Rate : 441 BPM P-R Int : 000 ms QRS Dur : 090 ms QT Int : 310 ms P-R-T Axes : 000 -11 -14 degrees QTc Int : 391 ms Atrial fibrillation Diffuse Minor Nonspecific T wave abnormality Abnormal ECG When compared with ECG of 31-JUL-2023 09:32, QT has shortened Confirmed by Kendrick Garcia ([id number]) on 08/01/2023 8:06:36 AM Referred By: Db Odonnell Confirmed By:Kendrick Garcia
[2023-08-01] MEDS: APIXABAN 5 MG TABLET PO SCH (08:08)
[2023-08-01] MEDS: LISINOPRIL/HCTZ 10/12.5MG TAB PO SCH (08:09)
--- NOTE | 2023-08-01 08:26 | Hospitalist Progress Note ---
Date of Service August 01, 2023 Assessment & Plan (1) Status post right knee replacement: Plan: -We were consulted for post-operative medical management and for a sinus pause which occurred during the operation -Pain control, DVT PPX, IV fluids, and perioperative abx per the primary team -Resume BID Eliquis 08/01/23 -From medical perspective, patient can be discharged once primary team feels it is appropriate. (2) Sinus pause: Plan: -Patient is currently stable and non-toxic appearing -We were alerted by the Anesthesia team that the patient had a significant sinus pause at the beginning of her procedure which required a dose of atropine, but she was otherwise stable -The patient was not captured on telemetry as they team was focused on stabilizing the patient during the procedure -Patient did have her am dose of metoprolol before surgery 07/31/23 -Post-operative ECG shows afib with diffuse t-wave inversions but was without acute ST segment changes -Post-operative labs ordered by our team shows a potassium of 3.4, mag of 1.9, and TSH/high sen trop WNL -At this time the patient's episode of sinus pause during her operative was likely due to her flipping in and out of afib and NSR --This was likely exacerbated with her potassium of 3.4 -- Potassium repleted and stable at 4.5 on 08/01/23 -Patient is followed by [facility] cardiology outpatient and will be following up with them post operatively -Night of 07/31/23, metoprolol held and digoxin given instead d/t BP 90s/50 and HR 120s -Metoprolol BID resumed AM 08/01/23 -BP and electrolytes are stable -Lisinopril-HCTZ resumed 08/01/23 (3) Atrial fibrillation: Plan: -Currently in rate controlled afib -Did have her am dose of Metoprolol prior to surgery 07/31/23 -Continue with home BID metoprolol as her HR is WNL -Agree with resuming Eliquis when the primary team is comfortable from a bleeding risk perspective -- resumed 08/01/23 AM (4) Hypokalemia: Plan: - Potassium 3.4 after surgery on 07/31/23 - This likely exacerbated episode of sinus pause during operation - Repleted with 40 meq PO KCL, 3 bags of 10 meq IV KCL, and 1gm IV mag sulfate - Potassium 4.5 on 08/01/23 (5) HTN (hypertension): Plan: - Chronic and stable - BP and electrolytes stable 08/01/23 - Resume Linsinopril-HCTZ Plan CODE STATUS: Full Code Admission and Anticipated Discharge Date Admission Date: July 31, 2023 Subjective Patient seen and evaluated at bedside with . She reports that she feels well overall and her knee pain is managed properly. She denies lightheadedness, dizziness, chest pain, palpitations, or any sensation of her heart skipping a beat. Patient resumed Eliquis and Metoprolol this AM. She states she is ready to go home, aware of the signs and symptoms of A-fib to be aware of, and will follow with her instrumentation instructor or return to the hospital if needed. She is cleared from a medical perspective for discharge home. Physical Exam Physical Exam: General: No acute distress, nondiaphoretic, well-developed, well-nourished. Skin: Right Leg: Wrapped in dressing with drain - clean, dry, intact. DP palpable, able to wiggle toes/ankle movement without difficulty. Otherwise, the skin was without rashes, erythema, edema, or bruising. Cardiac: Irregular rate and rhythm without murmurs gallops or rubs. HR in 90s. Pulm: Clear to auscultation bilaterally without wheezes, rales or rhonchi. No retractions or accessory muscle use. Abdominal: Positive bowel sounds x 4. Soft, nontender, without masses or organomegaly. No guarding or rebound tenderness. Neuro: A&O x3. No focal neurological deficits. Results & Data Results & Data Vital Signs (Past 12 Hours) Vital Signs Temp Pulse Pulse Resp BP Pulse Ox O2 Del Method 08/01/23 08:03 36.6 C 109 H 18 110/72 99 Room Air 08/01/23 03:51 36.7 C 108 H 20 106/71 94 Room Air 07/31/23 23:28 36.7 C 95 H 20 91/58 L 95 Room Air 07/31/23 22:00 111 H 07/31/23 21:55 113 H 07/31/23 20:36 97/66 L 07/31/23 20:19 36.7 C 94 H 20 92/57 L 92 Room Air Laboratory Results Reviewed CBC Reviewed BMP Reviewed EKG PG Care Time/CCT Total # of Minutes Spent Total Time Spent with Patient: Total time spent is greater than 50% in coordination of care (as documented) at patient's floor/unit and/or counseling patient: Coding Level of Care Code 80177 SUB INP/OBS CARE 2/35MIN Diagnoses Status post right knee replacement Z96.651 Sinus pause I45.5 Atrial fibrillation I48.91 Hypokalemia E87.6 HTN (hypertension) I10
[2023-08-01] MEDS ORDERED: CALCIUM CARBONATE 500 MG CHEWABLE TAB PO SCH (11:30)
--- NOTE | 2023-08-02 07:13 | Discharge Summary ---
Date of Service date of discharge: August 01, 2023 date of admission: 07/31/23 Admission HPI Per Admitting Provider Gloria is a pleasant 72-year-old female who presented for preop evaluation prior to upcoming right total knee arthroplasty. She has a longstanding history of right knee pain which is gradually worsened and is now affecting her daily activities including walking standing using stairs. She has tried physical therapy as well as previous injections with no improvement. She is tried oral anti-inflammatories and Tylenol as well. She has a history of left total knee arthroplasty which is recovered nicely. She at this time would like to proceed with a right total knee replacement. Currently unable to take anti- inflammatories due to Eliquis use Principal Diagnosis right knee osteoarthritis Discharge Exam Musculoskeletal Right knee: NVDI, calf SNT, negative isabel sign. DP palpable, able to wiggle toes/ankle movement without difficulty. MARCELA dressing clean dry and intact. expected post-operative bruising noted. Discharge Data Allergies Allergy/AdvReac Type Severity Reaction Status Date / Time No Known Allergies Allergy Verified 07/31/23 05:45 Consultations 07/31/23 11:29 Consult Hospitalist Routine Procedures Performed Operation Date: 07/31/23 07:00 Actual Procedures p Right Total Knee Arthroplasty(Right) - Db Price DO Ordered Studies 07/31/23 05:00 US - OR guided needle placemen Routine Hospital Course (1) Status post right knee replacement: POD #1 s/p Right TKA pt/ot dvt proph with JESSIE/SCD/resume her Eliquis this am plan for d/c home with HHPT when stable. will await medical team recommendations. if so will f/u in the office in 2 weeks, discussed patient f/u with her rn surgery icu as outpatient after discharge. acute blood loss anemia- H/H 8.12/20 this am, currently asymptomatic. Total Time Total Time Spent Total Time Spent (In Minutes): 20 Discharge Plan Discharge Items Patient Disposition: Home - Home Health Services Reason For Visit: Right Knee Osteoarthritis Discharge Diagnosis: right total knee replacement Activity: Per Instructions section Weightbearing Comment: WBAT with walker Non-emergency contact: Surgeon Call non-emergency contact if: you have any medication questions, your temperature is above 101, your wound has increased redness, your wound has increased drainage and your wound pain has increased Follow-up/Referrals: PCP,NO [Primary Care Provider] - Diet: Regular Addtl Attending Provider Instructions: ACTIVITY RECOMMENDATIONS: SELF CARE INSTRUCTIONS AFTER TOTAL KNEE REPLACEMENT A. You may need to continue a physical therapy program after discharge from the hospital. There are several options available to you. Your doctor will assist you in selecting the best one for you. 1. An out-patient facility 2 to 3 times a week for therapy or home therapy. 2. Continue working on all exercises taught to you in the hospital. Your goals should be to increase bending of your knee to 90 degrees and beyond and to fully straighten your knee. B. You may progress at your own pace from walking with a walker or crutches to a cane; then to no assistive devices. C. Make walking a part of your daily routine. Be up as much as comfortable with rest periods throughout the day. Rest with leg elevation is very important. Use the ice wrap frequently for the first 3-4 weeks. D. There are no restrictions on activities. You may ride in a car, shop, participate in financial analyst accountant and all social activities. E. Wear the long elastic stockings (JESSIE hose) 20 hours a day for 2 weeks after surgery. They can be removed several times a day for laundering and for a bath. F. You may shower, no tub baths until cleared by your doctor. SPECIAL CARE INSTRUCTIONS: VERY IMPORTANT TO READ AND REVIEW A. There are a few signs you need to watch for after you are home. Call [facility] if you notice any of the followin. Increased severe knee pain. Some pain is expected especially when you exercise. 2. Increased swelling in your leg or knee; pain or swelling of the calf muscle in either lower leg. 3. Any fluid drainage from the incision. 4. Shortness of breath or chest pain. B. Please call [facility] at if you have any concerns or questions about your operation or recovery. The doctor or his nurse will return your call promptly. C. You must take antibiotics before dental work, bladder, bowel or other surgery. Your doctor will provide you with a permanent care to carry describing this precaution. IMPORTANT: * REMEMBER TO TAKE ASPIRIN, 81 MG, TWICE DAILY FOR 4 WEEKS UNLESS OTHERWISE DIRECTED. THIS IS YOUR BLOOD THINNER. * HIGH RISK PATIENTS MAY BE PRESCRIBED A STRONGER BLOOD THINNER. THIS WILL BE PROVIDED AT DISCHARGE. * CALL IF INCREASED PAIN, REDNESS, DRAINAGE OR FEVER GREATER THAT 101. * WEAR JESSIE HOSE 20 HOURS PER DAY FOR 2 WEEKS. DRESSING INSTRUCTIONS * MARCELA Dressing- This is a large suction dressing covering your incision. This will help pull any excess drainage from the wound and allow your incision to heal properly. You may shower with this if you can keep the unit outside of the shower. If any bleeding or leakage is noted please call your doctor's office. This will remain on your incision for 7 days and then should be removed. This can be done yourself or by the home nursing staff if applicable. The entire unit is disposable once removed. Once removed, keep incision clean and dry. If redness or drainage is noted, please call your surgeon. ONCE MARCELA IS REMOVED, FOLLOW THESE INSTRUCTIONS: DERMABOND Prineo- This is a mesh tape dressing that is covered with glue. It should remain in place until the incision is properly healed, usually 10-14 days. This dressing is designed to naturally slough off. You may trim the exce ss mesh tape as it peels off. Incision may be briefly wet in a shower. Dry immediately by blotting with a clean, dry towel. Do not bath or swim until instructed by your doctor. Do not scratch, rub, or pick at the dressing. Do not apply any topical ointments or lotions until dressing is completely removed and/or instructed by your doctor. There may be a small piece of suture material at one end of your incision. Do not pull or trim this. If it is bothersome or catching on clothing, you may cover it with a band-aid. IF INCISION IS LEAKING THROUGH DRESSING, CALL THE OFFICE . FOLLOW UP VISIT: If appointment is not already scheduled: Please call [facility] to make a follow-up appointment for 2 weeks after your surgery at . Addtl Autism Specialist Provider Instructions: The hospital medicine team was consulted to evaluate you because of a sinus pause during surgery. This was most likely due to flipping in and out of afib and normal sinus rhythm, and exacerbated by a low potassium level. Your potassium was repleted and within normal limits on day of discharge. You were restarted on your Eliquis and Metoprolol today, 08/01/23. Please continue to follow with ortho, your PCP, and cardiology as needed. Please return to the hospital if you experience any of the following symptoms: chest pain, shortness of breath, lightheadedness, dizziness, a sensation that your heart is racing or skipping a beat. Stand-Alone Forms: My [facility] Medications and DC Order Prescriptions: New acetaminophen 500 mg tablet 1,000 mg PO Q8 21 Days Qty: 126 0RF cefadroxil 500 mg capsule 500 mg PO BID 14 Days Qty: 28 0RF docusate sodium 100 mg Capsule 100 mg PO BID Qty: 20 0RF oxycodone 5 mg tablet 5 - 10 mg PO Q6H PRN (Reason: pain) Qty: 30 0RF Rx Instructions: ongoing therapy, supervising dr stefani price. max 6 tabs in 24 hours. date of surgery 07/31/23 Continued multivitamin Tablet 1 tab PO QDL calcium 500 mg Tablet 500 mg PO QDL ferrous sulfate 325 mg (65 mg iron) Tablet 325 mg PO QAM metoprolol tartrate 50 mg Tablet 50 mg PO BID lisinopril-hydrochlorothiazide [Zestoretic] 10-12.5 mg Tablet 1 tab PO QAM estradiol [Estrace] 0.01 % (0.1 mg/gram) Cream 1 g VAGINAL [id number] Rx Instructions: for 14 days cholecalciferol (vitamin D3) [Vitamin D3] 50 mcg (2,000 unit) Tablet 50 mcg PO QAM Eliquis 5 mg Tablet 5 mg PO BID AZO D-Mannose 500 mg Capsule 500 mg PO QDL Admission Data Admit Date/Time: 07/31/23 09:01 Attending Provider: Db Price Admit Provider: Db Price Primary Care Provider: PCP,NO Other Providers: Dimitrios Kulkarni [facility]; Db Stephenson Other Interventions: Discharge Summary Assessment (RN) Last Done: 08/01/23 13:03
== END 2023-08-01 13:43 | disposition home health service (06) ==
LOC: ASU 05:02 → 2W 05:02